=== PATIENT | male | born 1945 | race Caucasian/White ===

== ENCOUNTER 2020-02-24 10:44 | Outpatient (CLI) | payer MEDICARE ==
[~2020-02-24 10:44] MED LIST: LEVO200T PO; OMEP-110 PO
[2020-02-25] MEDS ORDERED: OXYC5CAP2 PO (14:51)
[2020-02-25] MEDS ORDERED: LEUP3.75 IM (14:51)
[2020-02-25] MEDS ORDERED: [UNRECOGNIZED DRUG - CODE] PO (14:51)
[2020-02-25] MEDS ORDERED: DENO120V SQ (14:51)
[2020-02-25] MEDS ORDERED: LEVE500T53 PO (14:51)
[2020-02-27 12:22] LABS: OCCULT BLOOD NEGATIVE (NEGATIVE)
[2020-02-27 12:23] LABS: OCCULT BLOOD NEGATIVE (NEGATIVE)
[2020-02-27 12:23] LABS: OCCULT BLOOD NEGATIVE (NEGATIVE)
== END 2020-02-24 23:59 | disposition home or self-care (01) ==
LOC: LAB 10:44
PROVIDERS: ATTEND Nurse Practitioner
DX: C61 Malignant neoplasm of prostate (principal); Z51.11 Encounter for antineoplastic chemotherapy; C79.51 Secondary malignant neoplasm of bone; G89.3 Neoplasm related pain (acute) (chronic); D70.1 Agranulocytosis secondary to cancer chemotherapy; C79.31 Secondary malignant neoplasm of brain; R73.9 Hyperglycemia, unspecified
CPT/HCPCS: 82272